=== PATIENT | male | born 1975 | race Caucasian/White ===

== ENCOUNTER → 2016-09-16 | Outpatient (CLI) | payer SELFPAY ==
[2016-09-16 11:32] VITALS: BP 149/89
== END ==
LOC: MHUC 10:25
PROVIDERS: ATTEND Physician Assistant
DX: J01.00 Acute maxillary sinusitis, unspecified (principal); H66.001 Acute suppurative otitis media without spontaneous rupture of ear drum, right ear; R05 Cough
CPT/HCPCS: 99213

== ENCOUNTER → 2016-11-24 | Outpatient (CLI) | payer SELFPAY ==
[~2016-11-24] MED LIST: AGM500T PO; AMOX500C5 PO; BENZ-22 PO; LISI5TAB14 PO
[2016-11-24 12:53] VITALS: BP 140/88
--- NOTE | 2016-11-24 12:53 | Urgent Care T Sheet Gen (E) ---
Intake General Temperature (Fahrenheit): 98.8 Pulse: 76 Blood Pressure Systolic: 140 Blood Pressure Diastolic: 88 Respirations: 18 SPO2: 96 Description of Symptoms Patient presents with illness x 2 weeks, which is getting worse with time. Notes nasal congestion, PND, ST and cough. States the cough is intermittent but productive first thing in the morning. No fever. [place] nauseous this AM therefore his boss asked him to come and be seen. Been taking Theraflu intermittently. 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 Respiratory Constitutional Symptoms: No Fever, Malaise EENTM: Nose Congestion Throat pain Respiratory: Cough Short of breath Cardiovascular: No symptoms reported Gastrointestinal/Abdominal: No symptoms reported All Other Systems Reviewed Remaining Systems: All other systems reviewed with negative findings Past Ckshgko-Ezjqrw-Pkctcg Hx Cardiovascular Cardiovascular History: Hypertension Physical Exam Physical Exam General Appearance: WD/WN No apparent distress Eyes, Ears, Nose, Throat Ex: TMs normal Pharyngeal erythema (cobblestone appearance with thick PND) Other (red, swollen nasal turbinates wiht purulent drainage) Neck Exam: SuppleNo Lymphadenopathy Respiratory Exam: Lungs clear (dry cough during exam.) Normal breath sounds Cardiovascular Exam: Regular rate, rhythm Departure Urgent Care Impression Impression: Primary Impression: Sinusitis Qualified Code: J01.00 - Acute maxillary sinusitis, unspecified Additional Impression: Cough Departure Disposition: HOME OR SELF-CARE Condition: Stable Additional Instructions: The patient is self-pay therefore I prescribed Amoxicillin. He states he has some Tessalon pearls left over from a previous illness. May use that as needed. Encouraged him to take Mucinex in addition to the Amoxicillin for congestion and cough Rest. Fluids Return as needed Patient understands DC instructions. All questions were answered. Scripts Amoxicillin (Amoxil)500 Mg Lanniwa123 Mg PO TID Infection #21 CAP Ref 0 Prov:TIERRA JACKSON 11/24/16 End of report . TIERRA JACKSON Nov 24, 2016 12:53
== END ==
LOC: MHUC 12:33
PROVIDERS: ATTEND Physician Assistant
DX: J01.00 Acute maxillary sinusitis, unspecified (principal); R05 Cough
CPT/HCPCS: 99213

== ENCOUNTER 2016-12-09 06:11 | Emergency (ER) | payer OTHER ==
[~2016-12-09] VITALS: Ht 180.3 cm; Wt 105.2 kg
--- OUTSIDE RECORDS SUMMARY | 2016-12-09 06:15 | XMS REPORT ---
Author Author Shruthi Yun K Organization Unknown Address [address], [place] [id number] Phone Care Team Providers Care Operator Control Room Name Role Phone ShruthiTerenceJama PP Unavailable Unavailable Reason for Referral No Reason for Referral was given. Chief Complaint f/u meds & b/pHCPA Text Box CC: History of Present Illness No HPI available. Problems Hypertension Last Assessed: 11/04/2012 2:55:27 PM (401.9); (Active) Normal Routine History And Physical Adult (V70.0); (Active) Medication Chantix Continuing Month Joaquín 1 MG Oral Tablet; TAKE 1 TABLET TWICE DAILY.; Start Date: 11/04/2012; End Date: (Active)Lisinopril 20 MG Oral Tablet; 1/2 tab daily for 4 days, then 1 tab EVERY morning for BP; Start Date: 11/04/2012; End Date: (Active) Allergies and Adverse Reactions No Known Drug Allergies (Active) Past Medical History No Significant Medical History Procedures Procedure Procedure Date Date Completed Status Tonsillectomy With Adenoidectomy - - Active Immunization Td - Administered on: 08/09/2010 Family History Maternal grandfather's history of Chronic Obstructive Pulmonary Disease ( Active) Social History Smoking Cigarettes Last Assessed: 11/04/2012 2:51:54 PM (305.1); (Active ) Marital History - Never (Active) Working Skilled Laborer Comments: [employer] (Active) Alcohol Use Comments: 3 per week ( Active) Drug Use Comments: Quit in 2004 (305.90); (Active) Vital Signs Date Description Test Result 04 Nov 2012 02:46 PM recorded by: Kathrin Chadwick BP Systolic 146 mm[Hg] Heart Rate 72 /min BP Diastolic 100 mm[Hg] Advance Directives No Advance Directives available. Encounters Appointment 11/04/2012 RTNPT , Provider: Jama Hawkins, Status: Pen , Time: 4:15 PM 12/06/2012
[2016-12-09] MEDS ORDERED: ASPIRIN 81 MG CHEW (LOW-DOSE) PO ONE ×2 (06:20→06:55)
[2016-12-09] MEDS ORDERED: SODIUM CHLORIDE FLUSH 10 ML SYR IV PRN (06:20)
[2016-12-09] MEDS ORDERED: SODIUM CHLORIDE 250 ML IV PRN (06:20)
[2016-12-09] MEDS ORDERED: SODIUM CHLORIDE FLUSH 3 ML SYR IV PRN (06:20)
--- NOTE | 2016-12-09 06:20 | NUR ---
Pt presents ambulatory to ER with c/o chest pain. Right side chest, rates 2/10. Pt reports having sinus infection recently with sinus drainage and cough. Pt describes pain as if "someone had punched him in that area". Pain lasts less than 15 seconds at a time. Pt does report having high blood pressure. Onset of chest pain this orning at 0500 while at work.
[2016-12-09] MEDS ORDERED: TBR.3OP51 OD (06:30)
[2016-12-09 06:51] LABS: BASOPHILS % (AUTO) 0 % (0-2); EOSINOPHILS # (AUTO) 0.2 10^3uL; EOSINOPHILS % (AUTO) 3 % (0-4); MEAN CORPUSCULAR HEMOGLOBIN 30.9 PG (26.0-34.0); MEAN CORPUSCULAR HGB CONC 34.5 g/dL (31.0-37.0); MEAN CORPUSCULAR VOLUME 90 FL (80-100); MEAN PLATELET VOLUME 9.2 FL (6.0-9.5); MONOCYTES # (AUTO) 0.9 X10^3; MONOCYTES % (AUTO) 10 % (3-11); NEUTROPHILS % (AUTO) 54 % (51-67); PLATELET COUNT 218 10^3uL (150-450)
[2016-12-09 07:04] LABS: ALBUMIN 4.4 g/dL (3.4-5.0); ALKALINE PHOSPHATASE 106 U/L (38-126); ANION GAP 15.7 MEQ/L (3-15); BUN/CREATININE RATIO 12 (10-20); TOTAL PROTEIN 7.5 g/dL (6.4-8.5)
[2016-12-09 07:09] LABS: CREATINE KINASE 727 U/L (55-170)
[2016-12-09 07:27] LABS: BILIRUBIN,URINE Negative (Negative); CLARITY,URINE Clear; COLOR,URINE Yellow; GLUCOSE, URINE (UA) Negative (Negative); LEUKOCYTE ESTERASE ,URINE Negative (Negative); UROBILINOGEN,URINE 0.2 mg/dL (0.2-1.0)
[2016-12-09 07:33] LABS: AMPHETAMINE SCREEN, URINE Negative (Negative); CANNABINOID SCREEN, URINE Negative (Negative); METHAMPHETAMINE SCREEN URINE S NEGATIVE (NEGATIVE); OPIATE SCREEN URINE Negative (Negative); PROPOXYPHENE STAT NEGATIVE (NEGATIVE)
[2016-12-09 08:19] LABS: CREATINE KINASE 683 U/L (55-170)
--- NOTE | 2016-12-09 08:45 | NUR ---
DR BENÍTEZ SPEAKS WITH DR DOLL REGARDING PT
[2016-12-09 08:57] VITALS: BP 128/83
--- NOTE | 2016-12-09 09:19 | Diagnostic Imaging Report ---
INDICATION: Chest pain Frontal chest obtained at 7:08 a.m. Heart and mediastinal silhouette are normal in appearance. The lungs are clear. There is no pneumothorax or pleural fluid. IMPRESSION: Negative chest. Dictated by: Dictated on workstation # [id number]
== END 2016-12-09 09:02 | disposition home or self-care (01) ==
LOC: ED 06:15
DX: R07.89 Other chest pain (principal)
CPT/HCPCS: 36415; 71010; 80053; 80307; 81003; 82550; 82553; 84484; 85025; 85610; 85730; 93005; 93010; 99285